=== PATIENT | male | born 1990 | race Caucasian/White ===

== ENCOUNTER 2018-04-15 16:26 | Emergency (ER) | payer MEDICAID ==
[~2018-04-15] VITALS: Ht 160 cm; Wt 80.0 kg
[2018-04-15 16:40] VITALS: BP 176/99
[2018-04-15] MEDS ORDERED: buprenorphine/naloxone 2-0.5mg sublingual tablet SL STA (16:52)
[2018-04-15] MEDS ORDERED: buprenorphine/naloxone 8mg/2mg SL tablet SL STA (16:54)
[2018-04-15] MEDS ORDERED: BUPR1FIL3 SL (17:01)
== END 2018-04-15 17:58 | disposition home or self-care (01) ==
LOC: ER 16:27
DX: F11.20 Opioid dependence, uncomplicated (principal); Z76.0 Encounter for issue of repeat prescription; Z51.81 Encounter for therapeutic drug level monitoring; F17.200 Nicotine dependence, unspecified, uncomplicated; G89.29 Other chronic pain; Z86.59 Personal history of other mental and behavioral disorders; Z79.899 Other long term (current) drug therapy
CPT/HCPCS: 99283